=== PATIENT | male | born 1965 | race Caucasian/White ===

== ENCOUNTER 2016-04-21 15:58 | Emergency (ER) | payer MEDICARE, MEDICAID ==
--- NOTE | 2016-04-21 17:45 | ER Document Report ---
ED Respiratory Problem - General Mode of Arrival: Ambulatory Information source: Patient TRAVEL OUTSIDE OF THE [place] IN LAST 30 DAYS: No - HPI Patient complains to provider of: Cough, Short of breath Onset: Other - 3 days ago Context: Hx asthma, Hx COPD, Smoker - 2 pack per day Cough: Nonproductive Associated symptoms: Other - see above - General Chief Complaint: Other Stated Complaint: SHORTNESS OF BREATH Notes: 50 year old male with history of COPD, emphysema, hypertension, and hyperlipidemia presents to the ED via EMS complaining of a non-productive cough and shortness of breath that started 3 days ago. Patient is additionally complaining of chronic back pain and states that it is difficult to walk. Patient is a 2 pack per day smoker and alcohol user (last drink 1 month ago) and states that he ran out of his inhaler "a long time ago." Patient states he gets primary care from the [facility]. ([facility]ARE[facility] BEE) - Related Data Allergies/Adverse Reactions: trazodone [Trazodone] Allergy (Severe, Verified 06/16/15 15:33) Excessive nervousness codeine [Codeine] Adverse Reaction (Severe, Verified 06/16/15 15:33) Excessive Nervousness hydrocodone bitartrate [From Vicodin] Adverse Reaction (Severe, Verified 16:07) Excessive nervousness risperidone [From Risperdal] Adverse Reaction (Severe, Verified 06/16/15 15:33) Excessive nervousness Past Medical History - General Information source: Patient - Social History Smoking Status: Current Every Day Smoker Cigarette use (# per day): Yes - 2 ppd Frequency of alcohol use: Occasional Family History: Reviewed & Not Pertinent - Past Medical History Cardiac Medical History: Reports: Hx Hypercholesterolemia, Hx Hypertension - medicated Pulmonary Medical History: Reports: Hx Asthma, Hx Bronchitis, Hx COPD Endocrine Medical History: Reports: Hx Diabetes Mellitus Type 1, Hx Diabetes Mellitus Type 2 Musculoskeltal Medical History: Reports Hx Musculoskeletal Trauma Psychiatric Medical History: Reports: Hx Anxiety, Hx Bipolar Disorder, Hx Depression, Hx Schizophrenia Traumatic Medical History: Reports: Hx Fractures, Hx Traumatic Brain Injury Past Surgical History: Reports: Hx Abdominal Surgery, Hx Inguinal Hernia, Hx Kidney (Renal Surgery) - left kidney removed 2009 - Immunizations Immunizations up to date: Yes Hx Diphtheria, Pertussis, Tetanus Vaccination: Yes Review of Systems - Review of Systems Constitutional: No symptoms reported EENT: No symptoms reported Cardiovascular: No symptoms reported Respiratory: See HPI, Cough - non-productive, Short of breath Gastrointestinal: No symptoms reported Genitourinary: No symptoms reported Male Genitourinary: No symptoms reported Musculoskeletal: See HPI, Back pain - chronic Skin: No symptoms reported Hematologic/Lymphatic: No symptoms reported Neurological/Psychological: No symptoms reported Physical Exam - General General appearance: Alert In distress: None - HEENT Head: Normocephalic, Atraumatic Eyes: Normal Extraocular movements intact: Yes Pupils: PERRL - Respiratory Respiratory status: No respiratory distress Breath sounds: Rhonchi - bilateral. No: Normal - Cardiovascular Rhythm: Regular Heart sounds: Normal auscultation - Abdominal Inspection: Normal - Back Back: Normal, Nontender - no midline spine tenderness to palpation. No: Vertebra tenderness - Extremities General upper extremity: Normal inspection, Normal ROM General lower extremity: Normal inspection, Normal ROM - Neurological Neuro grossly intact: Yes Cognition: Normal Orientation: AAOx4 [place] Coma Scale Eye Opening: Spontaneous [place] Coma Scale Verbal: Oriented [place] Coma Scale Motor: Obeys Commands [place] Coma Scale Total: 15 Speech: Normal - Psychological Associated symptoms: Normal affect, Normal mood - Skin Skin Temperature: Warm Skin Moisture: Dry Skin Color: Normal - Vital signs Vitals: Temp Pulse Resp BP Pulse Ox 98.1 F 92 17 144/90 H 99 04/21/16 15:58 04/21/16 15:58 04/21/16 15:58 04/21/16 15:58 04/21/16 15:58 (TARA KENNEY) Course - Re-evaluation Re-evalutation: 04/21/16 17:47 I personally performed the services described in the documentation, reviewed and edited the documentation which was dictated to my scribe in my presence, and it accurately records my words and actions. presents emergency per with any chief complaint of increasing cough out of his inhaler uncertain whether he's taken his other medications several days. The chart says respiratory distress patient quickly seen at the bedside he is in no respiratory distress he has 100% pulse ox on room air with no difficulty breathing. He lives take cotton multitude of concerns that he has are most of which are chronic in nature he is set up with transport back and forth to his family doctor has a history of being noncompliant with that. accounts payable manager was asked to come to the bedside he refused as she has seen him in the past and he says he has everything he needs. But he states that he is not sure when he took his blood pressure medication last. Has no signs of end organ damage or concerns about her sugar is elevated on arrival he complains of no headache altered mental status or neurological deficits no strokelike symptoms chest pain or history of kidney failure. On examination he's got occasional rhonchi is afebrile no respiratory distress admitted soft no lotion me edema. No clinical concerns for ND PE or dissection. EKG shows sinus at 87 bpm chest x- ray questionable left upper lobe airspace disease could be a number of different things also could be pneumonia in the setting of his increased cough history of COPD clinical had started him on antibiotics given an inhaler. He says that he has his blood pressure medication at home he just forgets to take it. So he's going to take his blood pressure medication when he gets home. Also to follow-up with his family doctor in one to 2 days he verbalized knowing how to do that not needing assistance from the caser. Discussed reasons for ED return sooner 04/21/16 17:55 Have her prescription for Augmentin (TARA KENNEY) - Vital Signs Vital signs: Temp Pulse Resp BP Pulse Ox 98.1 F 92 17 144/90 H 99 04/21/16 15:58 04/21/16 15:58 04/21/16 15:58 04/21/16 15:58 04/21/16 15:58 (TARA KENNEY) (FAREED BEE) - EKG Interpretation by Me Additional EKG results interpreted by me: 04/21/16 17:55 EKG shows normal sinus rhythm at [address] segment elevation or depression (TARA KENNEY) Scribe Documentation - Scribe Written by Lynda:: Lynda Cuevas, 04/21/2016 18:24 acting as scribe for :: Elder
[2016-04-21] MEDS ORDERED: CEFTRIAXONE INJ 1000 MG VIAL IM ONE (17:53)
[2016-04-21] MEDS ORDERED: LIDOCAINE 1% INJ-PF (10 MG/ML) 30 ML SDV ONE (18:31)
[2016-04-21 19:01] VITALS: BP 123/67
--- NOTE | 2016-04-21 23:02 | EKG REPORT ---
SEVERITY:- NORMAL ECG - SINUS RHYTHM : Confirmed by: Zeke Salcedo 21-Apr-2016 23:01:17
--- NOTE | 2016-04-30 20:29 | ER Document Report ---
Doctor's Note Notes: 04/30/16 20:29 diagnosis 1. acute copd exacerbation
== END 2016-04-21 19:01 | disposition home or self-care (01) ==
LOC: ER 15:58
DX: J44.1 Chronic obstructive pulmonary disease with (acute) exacerbation (principal); I10 Essential (primary) hypertension; E78.00 Pure hypercholesterolemia, unspecified; Z88.6 Allergy status to analgesic agent; F17.210 Nicotine dependence, cigarettes, uncomplicated; J45.909 Unspecified asthma, uncomplicated; E11.9 Type 2 diabetes mellitus without complications; Z87.820 Personal history of traumatic brain injury
CPT/HCPCS: 93005; 99285; 96372; 71010; 93010; J3490; J0696